=== PATIENT | female | born 1990 | race Caucasian/White ===

== ENCOUNTER 2016-11-18 10:55 | Emergency (ER) | payer MEDICAID ==
[~2016-11-18] VITALS: Ht 149.9 cm; Wt 64.4 kg
[2016-11-18 11:11] VITALS: BP 118/77
[2016-11-18] MEDS ORDERED: ASPI81CT27 PO (11:15)
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
--- NOTE | 2016-11-18 11:34 | NUR ---
WENT TO XRAY ACCOMPANIED BY TECH.
--- NOTE | 2016-11-18 11:40 | NUR ---
BACK FROM XRAY ACCOMPANIED BY TECH.
--- NOTE | 2016-11-18 12:16 | NUR ---
PT RESTING ON BED;SISTER AT BEDSIDE;NO ACUTE DISTRESS NOTED;WILL CONTINUE TO MONITOR PT.
[2016-11-18 12:46] VITALS: BP 118/77
--- NOTE | 2016-11-18 12:46 | NUR ---
Patient discharged with v/s stable. Written and verbal after care instructions given and explained. Patient verbalized understanding. Ambulatory with steady gait. All questions addressed prior to discharge. Advised to follow up with PMD.
== END 2016-11-18 12:46 | disposition home or self-care (01) ==
LOC: MED 10:55
DX: S20.219A Contusion of unspecified front wall of thorax, initial encounter (principal); Z79.82 Long term (current) use of aspirin; V11.4XXA Pedal cycle driver injured in collision with other pedal cycle in traffic accident, initial encounter; Y93.89 Activity, other specified; Y92.89 Other specified places as the place of occurrence of the external cause; Y99.8 Other external cause status
CPT/HCPCS: 71101; 81025; 99283

== ENCOUNTER 2024-01-07 16:32 | Emergency (ER) | payer MEDICAID ==
[~2024-01-07] VITALS: Ht 147.3 cm; Wt 77.1 kg
[~2024-01-07 16:32] MED LIST: ASPI81CT95 PO
[2024-01-07 17:04] VITALS: BP 160/84; PULSE 88; RESP 16; TEMP 97.3; O2SAT 98
[2024-01-07] MEDS ORDERED: OFLO5SOL27 RIGHT EAR (17:30)
== END 2024-01-07 17:35 | disposition home or self-care (01) ==
LOC: MED 16:32
DX: H60.91 Unspecified otitis externa, right ear (principal); H92.02 Otalgia, left ear; Z95.4 Presence of other heart-valve replacement; Z79.82 Long term (current) use of aspirin
CPT/HCPCS: 99283